=== PATIENT | male | born 1965 | race Hispanic/Latino ===

== ENCOUNTER 2025-01-25 20:12 | Emergency (ER) | payer BC ==
[~2025-01-25] VITALS: Ht 170.2 cm; Wt 72.6 kg
--- NOTE | 2025-01-25 20:27 | ERN ---
ED Note History of Present Illness Stated Complaint: BACK PAIN Chief Complaint: Back Pain-No Injury Time Seen by MD: 20:14 Time Seen by Midlevel: 20:14 Dictation: The patient is a 60-year-old male with a history of herniated disc of L4 who presents to the emergency department with complaints of right lower back pain onset two days ago. Patient reports pain is worse with movement or repositioning. Patient denies any falls or injuries but reports that pain started after he was working under his truck. Reports he had a similar pain years ago when he was diagnosed with a herniated disc and we will see Dr. Rahman but has not follow up recently. Patient denies any tingling or numbness to lower extremity, denies any blood injuring, denies any incontinence. Allergies: Coded Allergies: No Known Allergies (Unverified Allergy, Unknown, 01/25/25) Past Medical History Past Medical History: Other Additional Past Medical Hx: HERNIATED DISKS Surgical History: None RN Note Reviewed/Agreed w/PFSH: Yes Review of System Dictation Constitutional: Negative for fever,chills, and weight loss Eyes: Negative for injury, pain,redness, and discharge ENT: Negative for injury,pain or swelling Cardiovascular: Negative for chest pain, palpitations, and edema Respiratory: Negative for shortness of breath, cough, and wheezing, Abdomen/GI: Negative for abdominal pain, nausea, vomiting, diarrhea, and constipation Back: Negative for injury and pain : Negative for injury, bleeding and discharge MS/Extremity: Positive for back pain Skin: Negative for rash, and discoloration Neuro: Negative for headache, weakness, numbness, tingling, and seizure Psych: Negative for suicide ideation, homicidal ideation, and hallucinations Initial Vital Sign VS Vital Signs Date Time Temp Pulse Resp B/P (MAP) Pulse Ox O2 Delivery O2 Flow Rate FiO2 01/25/25 20:14 97.7 73 20 151/78 99 Room Air 01/25/25 20:20 0 21 Physical Exam Dictation Vital Signs reviewed General Appearance: Alert, oriented x 3, no acute distress, well developed, nourished. Head and Face: non-traumatic. Eyes: PERRL, pink conjunctivas, eyelid no trauma, anterior chamber with arcus senilis. Ears: Pinnas intact and no signs of trauma or erythema ear canals clear and no discharge TM no erythema Nose: No discharge, no bleeding. Oropharynx: Mouth normal, tongue pink. pharynx clear,no erythema, tonsils no exudates, no abscesses noted, mucous membrane moist Neck: Supple, non-tender, no thyromegaly, no masses, no JVD, no bruits Breast:Deferred Chest:No tenderness, no crepitus, no paradoxical movement, no retractions Lungs:Clear, well-ventilated, symmetric, no rales, no wheezing, no rhonchi, no stridor, good breath sounds bilaterally Heart: Regular rate, regular rhythm, no murmur, no gallops Vascular: no peripheral edema, Abdomen: Soft, positive bowel sounds, nondistended, no guarding, nontender, no rebound, no masses no hepatomegaly, no splenomegaly, no Trevino's sign, no hernias. Rectal: Deferred Genital: Deferred Neurological: Normal speech, motor function intact, sensory function intact Musculoskeletal: Neck nontender, full range of motion, back nontender, full range of motion, Extremities: nontender, full range of motion Skin: Color pink, dry, no turgor, no rash, no lacerations, no abrasions, no contusions. Lymphatic: Deferred Results (Laboratory/Radiology) Laboratory/Radiology REASON: pain ORDERING PHYSICIAN: HUNTER APODACA DIRECTOR OF HUMAN RESOURCES PROCEDURE: LUMB 2 3VW - LUMBAR SPINE 2-3VWS EXAM: CR Lumbar Spine, 3 views. CLINICAL HISTORY: Pain. COMPARISON: None provided. FINDINGS: Lumbar alignment is within normal limits. Mild to moderate spondylosis and degenerative disc space narrowing at multiple levels, most pronounced at L4-L5. Normal vertebral body heights. No acute fracture. Soft tissues are within normal limits. IMPRESSION: No acute bony abnormality is evident. Mild to moderate spondylosis and degenerative disc space narrowing at multiple levels, most pronounced at L4-L5. /[facility] Labs Reviewed?: Yes ED Course ED Course Orders Procedure Category Date Status Time Lumbar Spine 2-3vws RAD 01/25/25 Resulted 20:22 Orphenadrine Citrate PHA 01/25/25 Complete (Norflex) 20:30 Triamcinolone Acet PHA 01/25/25 Complete 40mg/Ml 1ml (Kenalog 20:30 Ketorolac 60mg/2ml PHA 10/19/25 Complete (Toradol 60mg/2ml) 22:00 Current Medications Medications (Trade) Dose Ordered Sig/Kia Route PRN Reason Start Time Stop Time Status Last Admin Dose Admin Ketorolac Tromethamine (toRADol 60MG/ 2ML) 60 mg ONCE ONCE IM 01/25/25 22:00 01/25/25 22:01 DC 01/25/25 22:03 Orphenadrine Citrate (Norflex) 60 mg ONCE ONCE IM 01/25/25 20:30 01/25/25 20:31 DC 01/25/25 20:28 Triamcinolone Acetonide (Kenalog 40) 40 mg ONCE ONCE IM 01/25/25 20:30 01/25/25 20:31 DC 01/25/25 20:28 Vital Signs Date Time Temp Pulse Resp B/P (MAP) Pulse Ox O2 Delivery O2 Flow Rate FiO2 01/25/25 20:20 97.7 69 20 151/78 99 Room Air* 0 21 01/25/25 20:14 97.7 73 20 151/78 99 Room Air Medical Decision Making MDM The patient is a 60-year-old male with a history of herniated disc of L4 who presents to the emergency department with complaints of right lower back pain onset two days ago. Patient reports pain is worse with movement or repositioning. Patient denies any falls or injuries but reports that pain started after he was working under his truck. Reports he had a similar pain years ago when he was diagnosed with a herniated disc and we will see Dr. Rahman but has not follow up recently. Patient denies any tingling or numbness to lower extremity, denies any blood injuring, denies any incontinence. X-ray showed no fractures. Patient's pain improved after medication administration. Patient instructed to follow up back with Dr. Rahman. On physical exam patient is in no acute distress, patient is ambulatory, neurovascularly intact. Patient with no numbness or paresthesia to lower extremities, no urinary or fecal incontinence. Differential diagnosis: Lumbar strain, lumbar fracture, back strain Need for hospitalization: Patient does not meet criteria for hospitalization. There are no social concerns with this patient. DX & DISP Disposition: Discharge Departure Impression: Primary Impression: Lumbar sprain Additional Impression: Low back pain Condition: Stable Scripts Lidocaine (Lidocaine Pain Relief) 4 % Adh..patch 1 PATCH TP DAILY for 10 Days, #10 PATCH 0 Refills Prov: HUNTER APODACA PRASAD 01/25/25 Meloxicam (Meloxicam) 15 Mg Tablet 1 TAB PO DAILY for 10 Days, #10 TAB 0 Refills Prov: HUNTER APODACA PRASAD 01/25/25 Cyclobenzaprine HCl (Flexeril) 10 Mg Tab 10 MG PO TID for muscle sstiffness, #14 TAB 0 Refills Prov: PAULIEHUNTER PARHAM 01/25/25 Additional Instructions: Please follow up with the primary doctor in 1-2 days. Take your medications as prescribed. If anything worsens or changes please return to ER. FOLLOW-UP WITH PRIMARY CARE PROVIDER IN 1 TO 2 DAYS. TAKE MEDICATIONS DIRECTED HERE IN THE EMERGENCY ROOM. OKAY TO CONTINUE HOME MEDICATIONS UNLESS OTHERWISE DISCUSSED DURING YOUR VISIT IN THE EMERGENCY ROOM TODAY. RETURN TO YOUR NEAREST EMERGENCY ROOM IF SYMPTOMS WORSEN OR IF THERE IS NO IMPROVEMENT. CALL 911 IF YOU NEED IMMEDIATE ASSISTANCE. TAKE TYLENOL ONGN-LLI-LALPSLO NEEDED AND IF NO CONTRAINDICATIONS ARE PRESENT. INCREASE ORAL HYDRATION. A WOUND CULTURE OR URINE CULTURE WAS ORDERED HERE IN THE EMERGENCY ROOM DEPARTMENT PLEASE FOLLOW-UP WITH PRIMARY CARE PROVIDER AND ADVISE THEM TO GET REPEAT PORTS FROM OUR FACILITY. IF YOU HAD ANY JODY WRAP/SPLINTS THAT WERE APPLIED HERE, PLEASE DO NOT REMOVE THEM UNTIL YOU SEE YOUR PRIMARY CARE OR SPECIALTY. Time of Disposition: 22:18 I have reviewed the case, and I agree with, Diagnosis and Plan HUNTER APODACA PRASAD Jan 25, 2025 20:27
[2025-01-25] MEDS: ORPHENADRINE 60MG/2ML IM ONE (20:28)
[2025-01-25] MEDS: TRIAMCINOLONE ACETONIDE 40 MG/ML 1ML VIAL IM ONE (20:28)
--- NOTE | 2025-01-25 21:48 | HMCIMG ---
EXAM: CR Lumbar Spine, 3 views. CLINICAL HISTORY: Pain. COMPARISON: None provided. FINDINGS: Lumbar alignment is within normal limits. Mild to moderate spondylosis and degenerative disc space narrowing at multiple levels, most pronounced at L4-L5. Normal vertebral body heights. No acute fracture. Soft tissues are within normal limits. IMPRESSION: No acute bony abnormality is evident. Mild to moderate spondylosis and degenerative disc space narrowing at multiple levels, most pronounced at L4-L5. /[place]
[2025-01-25] MEDS ORDERED: CYCL10TA16 PO (22:21)
[2025-01-25] MEDS ORDERED: LIDO1ADH71 TP (22:21)
[2025-01-25] MEDS ORDERED: MELO-108 PO (22:21)
[2025-01-25 22:22] VITALS: BP 156/76; PULSE 68; RESP 20; TEMP 97.7; O2SAT 98
== END 2025-01-25 22:30 | disposition home or self-care (01) ==
LOC: EDH 20:12
DX: S33.5XXA Sprain of ligaments of lumbar spine, initial encounter (principal); X50.0XXA Overexertion from strenuous movement or load, initial encounter; Y93.89 Activity, other specified; Y92.89 Other specified places as the place of occurrence of the external cause; Y99.8 Other external cause status
CPT/HCPCS: 99284; 72100; 96372 ×3; J1885; J3301; J2360